=== PATIENT | female | born 1970 | race African-American/Black ===

== ENCOUNTER 2022-03-20 12:03 | Emergency (ER) | payer MEDICAID, SELFPAY ==
[2022-03-20 12:47] VITALS: BP 141/72; PULSE 64; RESP 18; TEMP 37.5; O2SAT 97; BMI 41.1
--- NOTE | 2022-03-20 16:40 | ED.GENADULT ---
HPI - General Adult General Chief complaint: Skin/Abscess/Foreign Body Stated complaint: infection after surgery Time Seen by Provider: 03/20/22 16:40 Source: patient Mode of arrival: ambulatory Limitations: no limitations History of Present Illness HPI narrative: 51-year-old female with no significant past medical history presents to the emergency department for a skin lesion on her back that isn't healing right after a lipoma removal 3 weeks ago. The patient reports that the surgical site has not healed, feels hot to the touch, and has had some yellow drainage coming from it. Patient states that the surgeon closed the wound with steri strip but the steri strips never stayed on. Patient states that the surgeon is through [facility] and she had the surgery at an outpatient surgical center. She reports going back twice for wound care, but all the doctor did was apply more steri-strips that kept coming undone. Patient states that she has not been given any antibiotics or had any referral to wound care. Patient denies fever, chills, headaches, vision changes, chest pain, shortness of breath, nausea, vomiting, or abdominal pain. Onset (ago): week(s) Location: back (right upper side) Radiation: non-radiation Severity: mild Severity scale (1-10): 3 Quality: dull Pain Consistency: constant Relieving factors: none Exacerbating factors: none Associated symptoms: denies other symptoms Treatments prior to arrival: none Related Data Previous Rx's Medication Instructions Recorded cephalexin 500 mg capsule 500 mg PO Q6H 7 days #28 caps 03/20/22 Allergies Allergy/AdvReac Type Severity Reaction Status Date / Time No Known Allergies Allergy Verified 03/20/22 16:57 Review of Systems Review of Systems: Yes all other systems are reviewed and are negative Constitutional: Constitutional: Reports no additional constitutional complaints, Denies chills, Denies fatigue, Denies fever(s), Denies headache(s) and Denies malaise Eyes: Eyes: Reports no additional eye complaints and Denies change in vision ENT: Reports system reviewed and no additional complaints, except as documented and Denies headache(s) Cardiovascular: Cardiovascular: Reports no additional cardiovascular complaints, Denies chest pain and Denies dyspnea Respiratory: Respiratory: Reports no additional respiratory complaints and Denies dyspnea Gastrointestinal: Gastrointestinal: Denies abdominal pain, Denies constipation, Denies diarrhea, Denies nausea and Denies vomiting Genitourinary: Genitourinary: Denies hematuria, Denies urinary frequency, Denies dysuria, Denies urinary incontinence, Denies urinary hesitancy and Denies urinary urgency Musculoskeletal: Musculoskeletal: Reports no additional musculoskeletal complaints, Denies numbness and Denies tingling Integumentary/Breasts: Skin/Breast: Reports system reviewed and no additional complaints, except as docu Comments: right shoulder surgical site Neurologic: Reports as per HPI, Denies headache(s), Denies numbness and Denies tingling Psychiatric: Psychiatric: Reports no additional psychiatric complaints Endocrine: Endocrine: Denies fatigue Hematologic/Lymphatic: Hematologic/Lymphatic: Reports no additional hematologic/lymphatic complaints Allergic/Immunologic: Allergic/Immunologic: Reports no additional allergic/immunologic complaints [facility] Past Medical History Attestation statement: The following information was validated with the patient. Source: old records reviewed Social History Social History Advance Directives: No Advance Directives Information Provided: No Physical Exam ED Vital Signs: Vital Signs - 24 hr 03/20/22 12:47 Temperature 99.5 F Pulse Rate 64 Respiratory Rate 18 Blood Pressure 141/72 H Pulse Oximetry 97 Oxygen Delivery Method Room Air BMI result Body Mass Index 41.1 Const General: cooperative, no acute distress, alert and awake Nutritional Appearance: well nourished Orientation/consciousness: patient oriented x3 Limitations: no limitations HENMT Head: Yes normal to inspection and Yes atraumatic Ears: hearing grossly normal bilaterally and external ears normal General nose exam: Normal external nose present, no nasal discharge noted and no epistaxis Face and sinus: Yes normal facial exam, No abrasion and No laceration Mouth: Normal oral and palatal mucosa present, no drooling and no muffled voice Eyes General: appearance normal, both eyes and all related structures Periorbital: periorbital findings normal Eyelids: Yes eyelids normal Conjunctivae: conjunctivae normal Pupils: Equal, round and reactive pupils present EOM: EOMs intact bilaterally Neck Neck: Yes normal visual inspection, Yes full ROM and Yes no lymphadenopathy Chest Chest palpation & inspection: normal inspection of the chest Resp Effort & Inspection: normal respiratory effort and able to speak in complete sentences Auscultation: clear to auscultation bilaterally Cardio Rate: regular rate Rhythm: regular rhythm GI Inspection: Yes normal to inspection Skin Other: Posterior lesion s/p lipoma removal. Minimal erythema with very scant yellowish discharge. No evidence of fluctuance, streaking, induration, or swelling. Well demarcated boarders. Neuro General: patient oriented x3 and moves all extremities Cranial nerves: Yes Equal, round and reactive pupils present Cognition (Neuro): normal cognition Motor exam (neuro): 5/5 motor strength present throughout Sensory Exam: Normal double simultaneous stimulation for sensation Coordination: [id number] test normal Extrem General: Yes full ROM and Yes capillary refill normal Psych Appearance: grossly normal Mental Status: mental status grossly normal Affect: normal affect Attitude: cooperative Thought process: Normal thought process present Thought content: Normal thought content present Insight: Good insight present (Psych) Medical Decision Making MDM Narrative Medical decision making narrative: Patient is a 51 year old female presenting to the emergency department today with a surgical wound that is not healing. Patient's physical exam showed a non-healing right shoulder lesion with minimal erythema and scant yellowish discharge. No evidence of surrounding cellulitis or abscess. I explained my physical exam findings to the patient. I answered all questions asked by the patient. I stressed the importance of the patient taking her medication as prescribed. I stressed the importance of the patient following up with her primary care provider, the surgeon who performed the excision, and the wound center. I stressed the importance of the patient returning to the emergency department immediately if her symptoms were to worsen or if she were to develop any dizziness, shortness of breath, difficulty breathing, chest pain, blurry vision, loss of vision, nausea, vomiting, abdominal pain, fever, chills, back pain, or any other complaints. Patient verbalized agreement and understanding with this treatment plan and discharge. Differential Diagnosis Differential Diagnosis: non-healing surgical wound Medical Records Medical records reviewed: Yes I reviewed the patient's medical records. Discharge Plan Discharge Clinical Impression: Surgical site infection Patient Disposition: Home, Self-Care Instructions: Surgical Site Infections (ED) Additional Instructions: Keep the wound as dry as possible, do not SOAK the surgical area. Follow up with your primary care provider, the surgeon who performed the surgery, and the wound clinic. Return to the emergency department immediately if your symptoms worsen or if you develop any dizziness, shortness of breath, difficulty breathing, chest pain, blurry vision, loss of vision, nausea, vomiting, abdominal pain, fever, chills, back pain, or any other complaints. Prescriptions: New cephalexin 500 mg capsule 500 mg PO Q6H 7 Days Qty: 28 0RF Referrals: [facility] – [place] Family Medicine [Provider Group] (Call to establish and follow up with a primary care provider. If you already have a primary care provider, please follow up with them. ) [facility] [place] Primary Care, [facility] [Provider Group] (Call to establish and follow up with a primary care provider. If you already have a primary care provider, please follow up with them. ) [facility] [place] Primary [facility] [Provider Group] (Call to establish and follow up with a primary care provider. If you already have a primary care provider, please follow up with them. ) [facility] [place] Wound Care Management [Provider Group] (Call to establish and follow up with the wound clinic. ) Interventions: ED Discharge Assessment Last Done: 03/20/22 17:10 Discharge Date/Time: 03/20/22 17:14 Print Language: Vincentian
== END 2022-03-20 17:14 | disposition home or self-care (01) ==
PROVIDERS: Emergency Provider Emergency Medicine Emergency Medical Services
DX: T81.49XA Infection following a procedure, other surgical site, initial encounter (principal); Y83.8 Other surgical procedures as the cause of abnormal reaction of the patient, or of later complication, without mention of misadventure at the time of the procedure; Y92.9 Unspecified place or not applicable; D17.9 Benign lipomatous neoplasm, unspecified
CPT/HCPCS: 99282; 99283

== ENCOUNTER 2022-03-24 11:08 | Emergency (ER) | payer MEDICAID, SELFPAY ==
[2022-03-24 11:38] VITALS: BP 138/86; PULSE 65; RESP 16; TEMP 36.6; O2SAT 98; BMI 41.1
--- NOTE | 2022-03-24 12:56 | ED_ITS ---
HPI - Wound/Laceration General Chief Complaint: Wound/Laceration Stated Complaint: incision form surgery. Time Seen by Provider: 03/24/22 12:28 Source: patient Mode of arrival: ambulatory Limitations: no limitations History of Present Illness HPI narrative: Patient is a 51 year old female presenting to the emergency department today for a wound check. Patient states that after her last visit here for this lipoma removal incision on the right side of her back, she did get scheduled at wound care but they can't get her in until the of this month. Patient states she is taking her antibiotics as prescribed and has been changing the bandage regularly. Patient states that she is concerned it isn't closing fast enough. Patient denies any dizziness, lightheadedness, abdominal pain, nausea, vomiting, fever, chills, blurry vision, double vision, loss of vision, chest pain, difficulty breathing, shortness of breath, back pain, night sweats, pain with urination, increased urinary frequency, increased urinary urgency, blood in her urine or stool, syncope or a near syncopal episode, recent trauma or falls, bowel incontinence, bladder incontinence, bowel retention, bladder retention, or any other complaints at this time. Associated symptoms: none Related Data Previous Rx's Medication Instructions Recorded cephalexin 500 mg capsule 500 mg PO Q6H 7 days #28 caps 03/20/22 Allergies Allergy/AdvReac Type Severity Reaction Status Date / Time No Known Allergies Allergy Verified 03/20/22 16:57 Review of Systems Constitutional: Constitutional: Reports no additional constitutional complaints, Denies chills, Denies fever(s) and Denies night sweats Eyes: Eyes: Reports no additional eye complaints, Denies blurry vision, Denies change in vision, Denies diplopia, Denies eye discharge, Denies loss of vision and Denies eye pain ENT: Denies dizziness Cardiovascular: Cardiovascular: Reports no additional cardiovascular complaints, Denies chest pain, Denies lightheadedness, Denies Loss of Consciousness and Denies dyspnea Respiratory: Respiratory: Reports no additional respiratory complaints and Denies dyspnea Gastrointestinal: Gastrointestinal: Reports no additional gastrointestinal complaints, Denies abdominal pain, Denies melena, Denies hematochezia, Denies change in bowel habits and Denies change in stool character Genitourinary: Genitourinary: Denies hematuria, Denies urinary frequency, Denies dysuria, Denies urinary incontinence, Denies urinary hesitancy and Denies urinary urgency Musculoskeletal: Musculoskeletal: Reports no additional musculoskeletal complaints, Denies numbness and Denies tingling Integumentary/Breasts: Comments: incision to the right back Neurologic: Denies dizziness, Denies loss of vision, Denies numbness and Denies tingling Psychiatric: Psychiatric: Reports no additional psychiatric complaints Endocrine: Endocrine: Reports no additional endocrine complaints Hematologic/Lymphatic: Hematologic/Lymphatic: Reports no additional hematologic/lymphatic complaints Allergic/Immunologic: Allergic/Immunologic: Reports no additional allergic/immunologic complaints [facility] Past Medical History Attestation statement: The following information was validated with the patient. Source: old records reviewed Social History Social History Advance Directives: No Advance Directives Information Provided: Yes Physical Exam Vital Signs: Vital Signs: Last Vital Signs Temp 98 F 03/24/22 11:38 Pulse 65 03/24/22 11:38 Resp 16 03/24/22 11:38 BP 138/86 03/24/22 11:38 Pulse Ox 98 03/24/22 11:38 O2 Del Method 03/24/22 11:38 BMI result Body Mass Index 41.1 Const: General: cooperative, no acute distress, alert and awake Nutritional Appearance: well nourished Orientation/consciousness: patient oriented x3 Limitations: no limitations HEENT: Head: Yes normal to inspection and Yes atraumatic Ears: hearing grossly normal bilaterally and external ears normal General nose exam: Normal external nose present, no nasal discharge noted and no epistaxis Face and sinus: Yes normal facial exam, No abrasion and No laceration Mouth: Normal oral and palatal mucosa present, no drooling and no muffled voice Eyes: General: appearance normal, both eyes and all related structures Periorbital: periorbital findings normal Eyelids: Yes eyelids normal Conjunctivae: conjunctivae normal Pupils: Equal, round and reactive pupils present EOM: EOMs intact bilaterally Neck: Neck: Yes normal visual inspection, Yes full ROM and Yes no lymphadenopathy Chest: Chest palpation & inspection: normal inspection of the chest Resp: Effort & Inspection: normal respiratory effort and able to speak in complete sentences Auscultation: clear to auscultation bilaterally Cardio: Rate: regular rate Rhythm: regular rhythm GI: Inspection: Yes normal to inspection Skin: Other: gaping incision to the right shoulder, looks more healed than when I previously saw this patient, no surrounding erythema or discharge Neuro: General: patient oriented x3 and moves all extremities Cranial nerves: Yes Equal, round and reactive pupils present Cognition (Neuro): normal cognition Motor exam (neuro): 5/5 motor strength present throughout Sensory Exam: Normal double simultaneous stimulation for sensation Coordination: [id number] test normal Extrem: General: Yes normal to inspection, Yes full ROM and Yes capillary refill normal Psych: Appearance: grossly normal Mental Status: mental status grossly normal Affect: normal affect Attitude: cooperative Thought process: Normal thought process present Thought content: Normal thought content present Insight: Good insight present (Psych) MDM - Wound/Laceration MDM Narrative Medical decision making narrative: Patient is a 51 year old female presenting to the emergency department today for a recheck of her surgical wound. Patient's physical exam showed a right posterior shoulder wound that looks markedly more healed than her previous visit. Patient's wound does not appear to have any erythema or discharge. I explained my physical exam findings to the patient. I answered all questions asked by the patient. I stressed the importance of the patient taking her medication as prescribed. I stressed the importance of the patient following up with her primary care provider, original operating surgeon, and the wound guido becerra. I stressed the importance of continuing to take her prescribed ABX and performing daily wound checks with daily dressing changes. I stressed the importance of the patient returning to the emergency department immediately if her symptoms were to worsen or if she were to develop any dizziness, shortness of breath, difficulty breathing, chest pain, blurry vision, loss of vision, nausea, vomiting, abdominal pain, fever, chills, back pain, or any other complaints. Patient verbalized agreement and understanding with this treatment plan and discharge. Medical Records Attestation: I reviewed the patient's medical records. Lab Data Attestation: I reviewed the patient's lab results. Discharge Plan Discharge Clinical Impression: Infected incision Patient Disposition: Home, Self-Care Instructions: Surgical Site Infections (ED) Additional Instructions: Follow up with your primary care provider and wound care. Return to the emergency department immediately if your symptoms worsen or if you develop any dizziness, shortness of breath, difficulty breathing, chest pain, blurry vision, loss of vision, nausea, vomiting, abdominal pain, fever, chills, back pain, or any other complaints. Prescriptions: No Action cephalexin 500 mg capsule 500 mg PO Q6H 7 Days Qty: 28 0RF Referrals: [facility] – [place] Family Medicine [Provider Group] (Call to establish with your primary care provider. If you already have a primary care provider, please follow up with them. ) [facility] [place] Primary Care, [facility] [Provider Group] (Call to establish with your primary care provider. If you already have a primary care provider, please follow up with them. ) [facility] [place] [facility] [Provider Group] (Call to establish with your primary care provider. If you already have a primary care provider, please follow up with them. ) [facility] [place] Wound Care Management [Provider Group] (Follow up with wound care on 04/05 as scheduled. ) Interventions: ED Discharge Assessment Last Done: 03/24/22 13:08 Discharge Date/Time: 03/24/22 13:09 Print Language: Lao
== END 2022-03-24 13:09 | disposition home or self-care (01) ==
PROVIDERS: Emergency Provider Emergency Medicine
DX: Z48.01 Encounter for change or removal of surgical wound dressing (principal)
CPT/HCPCS: 99283

== ENCOUNTER 2022-04-05 08:54 | Outpatient (RCR) | payer MEDICAID, SELFPAY | END 2022-06-22 07:56 | disposition home or self-care (01) | LOC: HO.WCC 08:54 | PROVIDERS: Visit Provider Physician Assistant | DX: Z09 Encounter for follow-up examination after completed treatment for conditions other than malignant neoplasm (principal); L90.5 Scar conditions and fibrosis of skin; E44.1 Mild protein-calorie malnutrition; R73.03 Prediabetes; D50.9 Iron deficiency anemia, unspecified; I10 Essential (primary) hypertension; Z87.891 Personal history of nicotine dependence; Z87.2 Personal history of diseases of the skin and subcutaneous tissue | CPT/HCPCS: 11042; 17250; 97597; 99212 ==